=== PATIENT | female | born 1980 | race Caucasian/White ===

== ENCOUNTER 2017-05-16 16:16 | Observation (INO) | payer MEDICAID, OTHER ==
[~2017-05-16] VITALS: Ht 154.9 cm; Wt 71.7 kg
[2017-05-16] VITALS (8 sets, daily range): BP systolic 118–141; BP diastolic 66–80; PULSE 83–94; RESP 15–20; TEMP 98.2–98.8; O2SAT 97–99
[~2017-05-16 16:16] MED LIST: DICL-86 PO; Z.0.NO CURRENT MEDS
--- NOTE | 2017-05-16 16:51 | PD ---
HPI Chief Complaint: Chest Pain Time Seen by Provider: 16:40 Travel History International Travel<30 days: No Contact w/Intl Traveler<30days: No Traveled to known affect area: No History of Present Illness HPI This 36-year-old female presents with complaint of chest pain. She's been having pain since yesterday. It seems to go across the back of her upper chest into the front of the upper chest with it so like a pressure sensation. It lasts for a few minutes at a time. It does seem to come on more with activity. She has been a little bit sweaty with the pain. It does radiate a little bit in the left arm. She has felt a little short of breath today. She does not smoke. She has no history of coronary artery disease. She had gestational diabetes 10 years ago. Her mother has a history of coronary artery disease and had a myocardial infarction at the age of 30. She spoke to her mother today and mother said that the pain that she is having seems similar to the pain her mother had with a myocardial infarction. PFSH Past Medical History Diabetes: Yes (BORDERLINE) ?: Not LMP: SATURDAY : 2 Para: 1 Past Surgical History Section: Yes Social History Alcohol Use: No Tobacco Use: No Substance Use: No Allergies-Medications (Allergen,Severity, Reaction): Coded Allergies: No Known Allergies (Verified , 05/16/17) Reported Meds & Prescriptions Reported Meds & Active Scripts Active No Active Prescriptions or Reported Medications Review of Systems General / Constitutional: No: Fever, Chills Eyes: No: Diploplia, Blurred Vision HENT: No: Headaches, Vertigo Cardiovascular: Positive: Chest Pain or Discomfort, No: Palpitations, Irregular Rhythm Respiratory: No: Shortness of Breath Gastrointestinal: No: Nausea, Vomiting Genitourinary: No: Urgency, Frequency Musculoskeletal: No: Myalgias Skin: No Rash Neurologic: No: Weakness, Dizziness Physical Exam Narrative GENERAL: Well-developed female SKIN: Focused skin assessment warm/dry. HEAD: Atraumatic. Normocephalic. EYES: Pupils equal and round. No scleral icterus. No injection or drainage. ENT: No nasal bleeding or discharge. Mucous membranes pink and moist. NECK: Trachea midline. No JVD. CARDIOVASCULAR: Regular rate and rhythm. No murmur appreciated. RESPIRATORY: No accessory muscle use. Clear to auscultation. Breath sounds equal bilaterally. There is no chest wall tenderness GASTROINTESTINAL: Abdomen soft, non-tender, nondistended. Hepatic and splenic margins not palpable. MUSCULOSKELETAL: No obvious deformities. No clubbing. No cyanosis. No edema. NEUROLOGICAL: Awake and alert. No obvious cranial nerve deficits. Motor grossly within normal limits. Normal speech. PSYCHIATRIC: Appropriate mood and affect; insight and judgment normal. Data Data Last Documented VS Vital Signs Date Time Temp Pulse Resp B/P (MAP) Pulse Ox O2 Delivery O2 Flow Rate FiO2 05/16/17 18:00 20 05/16/17 17:21 134/83 (100) 119/71 (87) 05/16/17 17:19 98 Room Air 05/16/17 16:30 98.8 88 Orders Orders Electrocardiogram (05/16/17 16:48) Basic Metabolic Panel (Bmp) (05/16/17 16:48) Complete Blood Count With Diff (05/16/17 16:48) Magnesium (Mg) (05/16/17 16:48) Prothrombin Time / Inr (Pt) (05/16/17 16:48) Act Partial Throm Time (Ptt) (05/16/17 16:48) Troponin I (05/16/17 16:48) Chest, Single Ap (05/16/17 16:48) Ecg Monitoring (05/16/17 16:48) Bilateral Bp Monitoring (05/16/17 16:48) Iv Access Insert/Monitor (05/16/17 16:48) Oximetry (05/16/17 16:48) Oxygen Administration (05/16/17 16:48) Aspirin Chew (Aspirin Chew) (05/16/17 17:00) Sodium Chloride 0.9% Flush (Ns Flush) (05/16/17 17:00) Admit Order (Ed Use Only) (05/16/17 18:06) Labs Laboratory Tests Test 05/16/17 17:10 White Blood Count 5.5 TH/MM3 Red Blood Count 4.91 MIL/MM3 Hemoglobin 13.5 GM/DL Hematocrit 39.7 % Mean Corpuscular Volume 80.8 FL Mean Corpuscular Hemoglobin 27.6 PG Mean Corpuscular Hemoglobin Concent 34.1 % Red Cell Distribution Width 12.1 % Platelet Count 341 TH/MM3 Mean Platelet Volume 7.5 FL Neutrophils (%) (Auto) 55.7 % Lymphocytes (%) (Auto) 36.7 % Monocytes (%) (Auto) 5.2 % Eosinophils (%) (Auto) 1.2 % Basophils (%) (Auto) 1.2 % Neutrophils # (Auto) 3.0 TH/MM3 Lymphocytes # (Auto) 2.0 TH/MM3 Monocytes # (Auto) 0.3 TH/MM3 Eosinophils # (Auto) 0.1 TH/MM3 Basophils # (Auto) 0.1 TH/MM3 CBC Comment DIFF FINAL Differential Comment Prothrombin Time 10.0 SEC Prothromb Time International Ratio 0.9 RATIO Activated Partial Thromboplast Time 21.2 SEC Blood Urea Nitrogen 10 MG/DL Creatinine 0.80 MG/DL Random Glucose 86 MG/DL Calcium Level 9.2 MG/DL Magnesium Level 2.5 MG/DL Sodium Level 137 MEQ/L Potassium Level 4.1 MEQ/L Chloride Level 104 MEQ/L Carbon Dioxide Level 25.4 MEQ/L Anion Gap 8 MEQ/L Estimat Glomerular Filtration Rate 81 ML/MIN Troponin I LESS THAN 0.02 NG/ML MDM Medical Decision Making Medical Screen Exam Complete: Yes Emergency Medical Condition: Yes Medical Record Reviewed: Yes Differential Diagnosis Differential includes chest wall pain, coronary artery disease, atypical chest pain Narrative Course EKG shows a normal sinus rhythm. Chest x-ray negative. Troponin negative. Patient will be admitted to chest pain center for further evaluation Diagnosis Primary Impression: Chest pain Qualified Codes: R07.9 - Chest pain, unspecified Admitting Information Admitting Physician Requests: Observation Scripts No Active Prescriptions or Reported Meds Roger Verdugo MD May 16, 2017 16:51
[2017-05-16] MEDS ORDERED: ASPIRIN 81 MG CHEW TAB PO ONE (17:00)
[2017-05-16] MEDS ORDERED: SODIUM CHLORIDE 0.9% FLUSH 10 ML FLUSH IVF PRN (17:00)
[2017-05-16 17:16] LABS: BASOPHIL # 0.1 TH/MM3 (0-0.2); BASOPHIL % 1.2 % (0.0-2.0); EOSINOPHIL # 0.1 TH/MM3 (0-0.4); EOSINOPHIL % 1.2 % (0.0-4.0); HEMATOCRIT 39.7 % (35.0-46.0); HEMO FLAGS DIFF FINAL; LYMPH % 36.7 % (9.0-44.0); MEAN CELL VOLUME 80.8 FL (80.0-100.0); MEAN CORPUSCULAR HEMOGLOBIN 27.6 PG (27.0-34.0); MEAN CORPUSCULAR HGB CONC 34.1 % (32.0-36.0); MONO % 5.2 % (0.0-8.0); NEUT % 55.7 % (16.0-70.0); PLATELET COUNT 341 TH/MM3 (150-450); RED BLOOD COUNT 4.91 MIL/MM3 (4.00-5.30); RED CELL DISTRIBUTION WIDTH 12.1 % (11.6-17.2); WHITE BLOOD COUNT 5.5 TH/MM3 (4.0-11.0)
[2017-05-16 17:23] LABS: CHLORIDE 104 MEQ/L (98-107); POTASSIUM 4.1 MEQ/L (3.5-5.1); SODIUM (NA) 137 MEQ/L (136-145)
[2017-05-16 17:26] LABS: ANION GAP 8 MEQ/L (5-15); BICARBONATE 25.4 MEQ/L (21.0-32.0); BLOOD UREA NITROGEN 10 MG/DL (7-18); MAGNESIUM 2.5 MG/DL (1.5-2.5)
[2017-05-16 17:29] LABS: APTT (PATIENT) 21.2 SEC (24.3-30.1); INTERNATIONAL NORMALIZED RATIO 0.9 RATIO
[2017-05-16 17:30] LABS: GLOMERULAR FILTRATION RATE 81 ML/MIN (>89)
--- NOTE | 2017-05-16 18:03 | RADRPT ---
EXAM DATE/TIME: 05/16/2017 17:45 [facility] COMPARISON: No previous studies available for comparison. INDICATIONS : Chest pain that started this morning. MEDICAL HISTORY : None. SURGICAL HISTORY : None. ENCOUNTER: Initial ACUITY: 1 day PAIN SCORE: 3/10 LOCATION: Left chest FINDINGS: Single AP view of the chest. The lungs are clear. Cardiomediastinal silhouette within normal limits. No evidence of pleural effusion or pneumothorax. CONCLUSION: No acute cardiopulmonary disease identified. Mak Boucher MD on May 16, 2017 at 18:01 Board Certified Radiologist. This report was verified electronically.
[2017-05-16] MEDS ORDERED: ONDANSETRON HCL 4 MG/2 ML VIAL IVP PRN (18:30)
[2017-05-16] MEDS ORDERED: MAGNESIUM HYDROXIDE SUSP 30 ML CUP PO PRN (18:30)
[2017-05-16] MEDS ORDERED: MORPHINE SULFATE 4 MG/ML INJ IV PUSH PRN ×2 (18:30)
[2017-05-16] MEDS ORDERED: NITROGLYCERIN 0.4 MG SL 25 TABS/BTL SL PRN (18:30)
[2017-05-16] MEDS ORDERED: NALOXONE HCL 0.4 MG/ML AMP IV PUSH PRN (18:30)
[2017-05-16] MEDS ORDERED: SODIUM CHLORIDE 0.9% FLUSH 10 ML FLUSH IV FLUSH PRN (18:30)
--- NOTE | 2017-05-16 18:36 | HHI.HP ---
[facility] No Primary Care Physician Admission Diagnosis CHEST PAIN Diagnoses: (1) Chest pain Diagnosis: Principal Travel History International Travel<30 Days: No Contact w/Intl Traveler <30 Da: No Traveled to Known Affected Are: No History of Present Illness Mrs. Claudio is a 36-year-old female. She is here today after having chest pain starting yesterday morning. Yesterday the chest pain was persistent and present in her left upper back, left neck, and left upper chest. Today the pain persisted and had an off-and-on pattern and was more severe. She has concerns as her mother had a myocardial infarction in her 40s and her maternal grandmother had 5 myocardial infarctions. Chest pain is improved but remains when patient is seen in the ER. Her only past medical history is gestational diabetes. Her only past surgery is a . No other complaints. She did have some nausea as a symptom but is not nauseous when seen. No reports of fever, cough, or vomiting. Chest pain was not related to exertion. Review of Systems Constitutional: DENIES: Fatigue, Fever, Chills, Dizziness Eyes: DENIES: Blurred vision, Diplopia, Eye inflammation Ears, nose, mouth, throat: DENIES: Tinnitus, Hearing loss, Vertigo Respiratory: DENIES: Cough, Wheezing, Shortness of breath Cardiovascular: COMPLAINS OF: Chest pain, DENIES: Palpitations, Syncope Gastrointestinal: DENIES: Abdominal pain, Black stools, Bloody stools Musculoskeletal: DENIES: Joint pain, Muscle aches, Stiffness Integumentary: DENIES: Abnormal pigmentation, Pruritus, Rash Hematologic/lymphatic: DENIES: Bruising, Lymphadenopathy Immunologic/allergic: DENIES: Eczema, Urticaria Neurologic: DENIES: Abnormal gait, Headache, Paresthesias Psychiatric: DENIES: Anxiety, Confusion, Hallucinations Past Family Social History Past Medical History Gestational diabetes history Past Surgical History history Reported Medications Reported Meds & Active Scripts Active No Active Prescriptions or Reported Medications Allergies: Coded Allergies: No Known Allergies (Verified , 05/16/17) Family History Myocardial infarction in mother, hypertension and diabetes mellitus in mother Hypertension and diabetes mellitus in father 5 myocardial infarctions in maternal grandmother Social History No history of smoking No history of alcohol abuse No history of illicit drug abuse Physical Exam Vital Signs Vital Signs Date Time Temp Pulse Resp B/P (MAP) Pulse Ox O2 Delivery O2 Flow Rate FiO2 05/16/17 17:21 134/83 (100) 119/71 (87) 05/16/17 17:19 98 Room Air 05/16/17 16:30 98.8 88 16 141/75 (97) 99 Physical Exam GENERAL: NAD, A&Ox3 HEAD: Normocephalic. NECK: Supple, trachea midline. No lymphadenopathy. EYES: No scleral icterus. No injection or drainage. CARDIOVASCULAR: Regular rate and rhythm without murmurs, gallops, or rubs. RESPIRATORY: Breath sounds equal bilaterally. No accessory muscle use. GASTROINTESTINAL: Abdomen soft, non-tender, nondistended. MUSCULOSKELETAL: No cyanosis, or edema. SKIN: Warm and dry. NEURO: No focal neurological deficitis. Laboratory Laboratory Tests Test 05/16/17 17:10 White Blood Count 5.5 Red Blood Count 4.91 Hemoglobin 13.5 Hematocrit 39.7 Mean Corpuscular Volume 80.8 Mean Corpuscular Hemoglobin 27.6 Mean Corpuscular Hemoglobin Concent 34.1 Red Cell Distribution Width 12.1 Platelet Count 341 Mean Platelet Volume 7.5 Neutrophils (%) (Auto) 55.7 Lymphocytes (%) (Auto) 36.7 Monocytes (%) (Auto) 5.2 Eosinophils (%) (Auto) 1.2 Basophils (%) (Auto) 1.2 Neutrophils # (Auto) 3.0 Lymphocytes # (Auto) 2.0 Monocytes # (Auto) 0.3 Eosinophils # (Auto) 0.1 Basophils # (Auto) 0.1 CBC Comment DIFF FINAL Differential Comment Prothrombin Time 10.0 Prothromb Time International Ratio 0.9 Activated Partial Thromboplast Time 21.2 Blood Urea Nitrogen 10 Creatinine 0.80 Random Glucose 86 Calcium Level 9.2 Magnesium Level 2.5 Sodium Level 137 Potassium Level 4.1 Chloride Level 104 Carbon Dioxide Level 25.4 Anion Gap 8 Estimat Glomerular Filtration Rate 81 Troponin I LESS THAN 0.02 Result Diagram: 05/16/17 [id number]/171709 Caprini VTE Risk Assessment Billyrini VTE Risk Assessment: No/Low Risk (score <= 1) Caprini Risk Assessment Model Point Value = 1 Point Value = 2 Point Value = 3 Point Value = 5 Age 41-60 Minor surgery BMI > 25 kg/m2 Swollen legs Varicose veins or History of unexplained or recurrent spontaneous Oral contraceptives or hormone replacement Sepsis (< 1 month) Serious lung disease, including pneumonia (< 1 month) Abnormal pulmonary function Acute myocardial infarction Congestive heart failure (< 1 month) History of inflammatory bowel disease Medical patient at bed rest Age 61-74 Arthroscopic surgery Major open surgery (> 45 min) Laparoscopic surgery (> 45 min) Malignancy Confined to bed (> 72 hours) Immobilizing plaster cast Central venous access Age >= 75 History of VTE Family history of VTE Factor V Leiden Prothrombin [id number] Lupus anticoagulant Anticardiolipin antibodies Elevated serum homocysteine Heparin-induced thrombocytopenia Other congenital or acquired thrombophilia Stroke (< 1 month) Elective arthroplasty Hip, pelvis, or leg fracture Acute spinal cord injury (< 1 month) Prophylaxis Regimen Total Risk Factor Score Risk Level Prophylaxis Regimen 0-1 Low Early ambulation 2 Moderate Order ONE of the following: *Sequential Compression Device (SCD) *Heparin 5000 units SQ BID 3-4 Higher Order ONE of the following medications: *Heparin 5000 units SQ TID *Enoxaparin/Lovenox 40 mg SQ daily (WT < 150 kg, CrCl > 30 mL/min) *Enoxaparin/Lovenox 30 mg SQ daily (WT < 150 kg, CrCl > 10-29 mL/min) *Enoxaparin/Lovenox 30 mg SQ BID (WT < 150 kg, CrCl > 30 mL/min) AND/OR *Sequential Compression Device (SCD) 5 or more Highest Order ONE of the following medications: *Heparin 5000 units SQ TID (Preferred with Epidurals) *Enoxaparin/Lovenox 40 mg SQ daily (WT < 150 kg, CrCl > 30 mL/min) *Enoxaparin/Lovenox 30 mg SQ daily (WT < 150 kg, CrCl > 10-29 mL/min) *Enoxaparin/Lovenox 30 mg SQ BID (WT < 150 kg, CrCl > 30 mL/min) AND *Sequential Compression Device (SCD) Assessment and Plan Problem List: (1) Chest pain ICD Code: R07.9 - Chest pain, unspecified Status: Acute Assessment and Plan Assessment and plan 36-year-old female admitted for chest pain, with a strong family history of coronary artery disease. Chest pain Evaluate for ACS Follow cardiac enzymes Aspirin daily When necessary oxygen When necessary morphine for pain. When necessary nitroglycerin Follow on telemetry Fasting lipid profile in a.m. History of gestational diabetes Follow blood sugars with a.m. lab draws DVT prophylaxis Lovenox Problem Qualifiers (1) Chest pain: Qualified Codes: R07.9 - Chest pain, unspecified Juan Alberto Sim MD May 16, 2017 18:36
[2017-05-16] MEDS: SODIUM CHLOR 0.9% 1000 ML INJ 1,000 ML IV SCH (19:45)
[2017-05-16] MEDS ORDERED: ENOXAPARIN SODIUM 40 MG/0.4 ML SYRINGE SQ SCH (20:00)
[2017-05-16] MEDS: SODIUM CHLORIDE 0.9% FLUSH 10 ML FLUSH IV FLUSH SCH (21:00)
[2017-05-16 21:02] LABS: CREATINE KINASE 65 U/L (26-192)
[2017-05-16 23:13] LABS: CREATINE KINASE 60 U/L (26-192)
[2017-05-17] VITALS: BP 111/63; PULSE 80; RESP 20; TEMP 97.7; O2SAT 97
[2017-05-17 04:00] VITALS: BP 100/68; PULSE 74; RESP 16; TEMP 97.3; O2SAT 99
[2017-05-17 06:17] LABS: AUTOMATED NEUTROPHIL # 2.2 TH/MM3 (1.8-7.7); BASOPHIL % 0.8 % (0.0-2.0); EOSINOPHIL # 0.1 TH/MM3 (0-0.4); EOSINOPHIL % 2.1 % (0.0-4.0); HEMATOCRIT 36.7 % (35.0-46.0); HEMO FLAGS DIFF FINAL; LYMPH % 42.8 % (9.0-44.0); LYMPHOCYTE # 2.1 TH/MM3 (1.0-4.8); MEAN CELL VOLUME 82.2 FL (80.0-100.0); MEAN CORPUSCULAR HEMOGLOBIN 27.4 PG (27.0-34.0); MEAN CORPUSCULAR HGB CONC 33.3 % (32.0-36.0); MONO % 7.4 % (0.0-8.0); NEUT % 46.9 % (16.0-70.0); PLATELET COUNT 302 TH/MM3 (150-450); RED BLOOD COUNT 4.46 MIL/MM3 (4.00-5.30); RED CELL DISTRIBUTION WIDTH 12.2 % (11.6-17.2); WHITE BLOOD COUNT 4.8 TH/MM3 (4.0-11.0)
[2017-05-17 06:24] LABS: CHLORIDE 106 MEQ/L (98-107); POTASSIUM 3.6 MEQ/L (3.5-5.1); SODIUM (NA) 139 MEQ/L (136-145)
[2017-05-17 06:52] LABS: ALKALINE PHOSPHATASE 39 U/L (45-117); ALT (GPT) 13 U/L (10-53); ANION GAP 8 MEQ/L (5-15); AST (GOT) 10 U/L (15-37); BICARBONATE 25.4 MEQ/L (21.0-32.0); BLOOD UREA NITROGEN 12 MG/DL (7-18); GLOMERULAR FILTRATION RATE 96 ML/MIN (>89); TOTAL BILIRUBIN ADULT 0.5 MG/DL (0.2-1.0)
[2017-05-17 08:00] VITALS: BP 110/74; PULSE 93; RESP 20; TEMP 98.3; O2SAT 97
[2017-05-17] MEDS: SODIUM CHLORIDE 0.9% FLUSH 10 ML FLUSH IV FLUSH SCH (08:01)
[2017-05-17] MEDS: SODIUM CHLOR 0.9% 1000 ML INJ 1,000 ML IV SCH (08:01)
[2017-05-17] MEDS ORDERED: ASPIRIN 325 MG TAB PO SCH (09:00)
[2017-05-17 09:23] LABS: LDL CHOLESTEROL 96 MG/DL (0-99)
--- NOTE | 2017-05-17 10:54 | TR ---
Date Performed: 05/17/2017 Time Performed: 09:39:43 DOCTOR: Kelby Garcia DRUG LIST: CLINICAL HISTORY: CHEST PAIN REASON FOR TEST: Chest pain REASON FOR ENDING: Completed Protocol OBSERVATION: Arrhythmia: None Chest Pain: None CONCLUSION: Patient tolerated INDER protocol with Total Exercise Time=8:00 Maximum CX=151 % Max HR Achieved=87.0% Maximum RV=903/82, Testing stopped secondary to goals acheived, During entire testi ng patient was asymptomatic, during peak exercise, patient had uploping ST segments. HR and BP approp riate response to exercise, Recovery period, HR and BP returned to baseline COMMENTS: Conclusion: Normal treadmill exercise. No evidence of ischemia.
[2017-05-17] MEDS ORDERED: IBUP200T2 PO (11:51)
--- NOTE | 2017-05-17 11:56 | HHI.DS ---
Discharge Summary Admission Date May 16, 2017 at 18:07 Discharge Date: May 17, 2017 Admitting Diagnosis CHEST PAIN (1) Chest pain ICD Code: R07.9 - Chest pain, unspecified Status: Acute Procedures Treadmill Stress test Brief History - From Admission Mrs. Claudio is a 36-year-old female. She is here today after having chest pain starting yesterday morning. Yesterday the chest pain was persistent and present in her left upper back, left neck, and left upper chest. Today the pain persisted and had an off-and-on pattern and was more severe. She has concerns as her mother had a myocardial infarction in her 40s and her maternal grandmother had 5 myocardial infarctions. Chest pain is improved but remains when patient is seen in the ER. Her only past medical history is gestational diabetes. Her only past surgery is a . No other complaints. She did have some nausea as a symptom but is not nauseous when seen. No reports of fever, cough, or vomiting. Chest pain was not related to exertion. CBC/BMP: 05/17/17 0513 05/17/17 0513 Significant Findings Laboratory Tests Test 05/16/17 17:10 05/16/17 20:32 05/16/17 22:40 05/17/17 05:13 Activated Partial Thromboplast Time 21.2 SEC (24.3-30.1) Estimat Glomerular Filtration Rate 81 ML/MIN (>89) Troponin I LESS THAN 0.02 NG/ML LESS THAN 0.02 NG/ML LESS THAN 0.02 NG/ML Random Glucose 114 MG/DL (74-106) Calcium Level 8.4 MG/DL (8.5-10.1) Alkaline Phosphatase 39 U/L (45-117) Aspartate Amino Transf (AST/SGOT) 10 U/L (15-37) Triglycerides Level 161 MG/DL (42-150) Hospital Course Mrs. Claudio is a 36-year-old female. She came in secondary to chest pain. She had a strong family history of coronary artery disease and [place]. She had a cardiac workup including chronic enzymes, EKGs, and stress test. Findings were all within normal limits. Chest pain is improved. Some aching in the back of her neck remains. Etiology may be inflammatory. Ibuprofen for 3 days recommended. Patient medically cleared and stable for discharge today. Pt Condition on Discharge: Stable Discharge Disposition: Discharge Home Discharge Time: <= 30 minutes Discharge Instructions DIET: Follow Instructions for: As Tolerated, No Restrictions Activities you can perform: Regular-No Restrictions Follow up Referrals: PCP Follow-up - 2 Weeks New Medications: Ibuprofen (Ibuprofen) 200 Mg Tab 200 MG PO TID for Inflammation, #9 TAB 0 Refills Juan Alberto Sim MD May 17, 2017 11:56
--- NOTE | 2017-05-17 13:48 | EKG ---
Date Performed: 05/16/2017 Time Performed: 22:30:46 PTAGE: 36 years EKG: Sinus rhythm LOW QRS VOLTAGE IN PRECORDIAL LEADS POSSIBLE RIGHT VENTRICULAR CONDUCTION DELAY BORDERLINE ECG PREVIOUS TRACING : 05/16/2017 20.06 Since previous tracing, no significant change noted DOCTOR: Kelby Garcia Interpretating Date/Time 05/17/2017 13:48:41
--- NOTE | 2017-05-17 13:55 | EKG ---
Date Performed: 05/16/2017 Time Performed: 20:06:52 PTAGE: 36 years EKG: Sinus rhythm NORMAL ECG PREVIOUS TRACING : 05/16/2017 17.23 Since previous tracing, no significant change noted DOCTOR: Kelby Garcia Interpretating Date/Time 05/17/2017 13:54:11
--- NOTE | 2017-05-17 13:56 | EKG ---
Date Performed: 05/16/2017 Time Performed: 17:23:46 PTAGE: 36 years EKG: Sinus rhythm LOW QRS VOLTAGE IN PRECORDIAL LEADS BORDERLINE ECG NO PREVIOUS TRACING DOCTOR: Kelby Garcia Interpretating Date/Time 05/17/2017 13:54:57
== END 2017-05-17 12:55 | disposition home or self-care (01) ==
LOC: PHED 16:16 → PHEDA 18:07 → PH3B 20:58
PROVIDERS: ADMIT Hospitalist; ATTEND Hospitalist
DX: R07.9 Chest pain, unspecified (principal); R94.31 Abnormal electrocardiogram [ECG] [EKG]; Z82.49 Family history of ischemic heart disease and other diseases of the circulatory system
CPT/HCPCS: 71010; 80048; 80053; 80061; 82550; 83735; 84484; 84703; 85025; 85610; 85730; 93005; 93017; 96360; 96361; 96372; 99285; G0378; J1650; J7030